=== PATIENT | female | born 1975 | race African-American/Black ===

== ENCOUNTER 2020-02-02 01:07 | Emergency (ER) | payer BC ==
[~2020-02-02] VITALS: Ht 160 cm; Wt 72.7 kg
[2020-02-02] MEDS ORDERED: PERTUSS(ACELL),DIPH,TET VAC/PF 0.5 ML VIAL IM ONE (02:30)
[2020-02-02] MEDS ORDERED: LIDOCAINE 2% 5 ML JELLY TP ONE (02:30)
[2020-02-02 04:11] VITALS: BP 147/90
== END 2020-02-02 05:06 | disposition home or self-care (01) ==
LOC: EDSEX 01:07 → EMS 01:07
DX: S51.812A Laceration without foreign body of left forearm, initial encounter (principal); W45.8XXA Other foreign body or object entering through skin, initial encounter; Y93.89 Activity, other specified; Y92.89 Other specified places as the place of occurrence of the external cause; Y99.8 Other external cause status
CPT/HCPCS: 12001; 90471; 90715

== ENCOUNTER 2020-02-15 00:11 | Emergency (ER) | payer BC ==
[~2020-02-15] VITALS: Ht 160 cm; Wt 72.7 kg
[2020-02-15 00:41] VITALS: BP 123/68
== END 2020-02-15 00:56 | disposition home or self-care (01) ==
LOC: EMS 00:15
DX: S51.812D Laceration without foreign body of left forearm, subsequent encounter (principal); W25.XXXD Contact with sharp glass, subsequent encounter